=== PATIENT | male | born 1960 | race Caucasian/White ===

== ENCOUNTER 2019-03-13 00:25 | Day surgery (SDC) | payer BC ==
[~2019-03-13] VITALS: Ht 167.6 cm; Wt 56.2 kg
[2019-03-13 10:07] VITALS: BP 110/82
[2019-03-13] MEDS ORDERED: LIDOCAINE MPF 1% 5 ML VIAL ONE (10:33)
[2019-03-13] MEDS ORDERED: PROPOFOL EMUL(*) 10MG/ML 20 ML 40 ML ONE (10:33)
[2019-03-13] MEDS ORDERED: LIDOCAINE/SOD BICARB 8.4% SYR ID ONE (11:30)
[2019-03-13] MEDS ORDERED: NORMOSOL R SOLN(*) 1000 ML BAG 1,000 ML IV PRN (11:30)
[2019-03-13 11:31] VITALS: BP 100/70
[2019-03-13 11:45] VITALS: BP 92/60
[2019-03-13 12:00] VITALS: BP 88/60
[2019-03-13 12:15] VITALS: BP 99/81
[2019-03-13 12:30] VITALS: BP 93/68
== END 2019-03-13 12:55 | disposition home or self-care (01) ==
LOC: OR 00:25
PROVIDERS: ATTEND Family Medicine
DX: Z12.11 Encounter for screening for malignant neoplasm of colon (principal); D12.8 Benign neoplasm of rectum; K57.30 Diverticulosis of large intestine without perforation or abscess without bleeding
CPT/HCPCS: 88305; J2001; J2704